=== PATIENT | male | born 1955 | race Hispanic/Latino ===

== ENCOUNTER → 2021-06-02 | Outpatient (CLI) | payer OTHER ==
[~2021-06-02] MED LIST: REGADENOSON 0.4 MG/5 ML PF SYG IVP SCH
== END | disposition home or self-care (01) ==
LOC: OIH 08:43
PROVIDERS: ATTEND Internal Medicine Cardiovascular Disease
DX: R07.9 Chest pain, unspecified (principal)
CPT/HCPCS: 78452; 93017; 96374; A9500 ×2; J2785

== ENCOUNTER → 2022-09-27 | Outpatient (CLI) | payer OTHER ==
[2022-09-27 12:33] LABS: BASOPHILS % (AUTO) 0.6 % (0.0-5.0); EOSINOPHILS % (AUTO) 4.3 % (0.0-8.0); HEMATOCRIT 38.9 % (42-54); LYMPHOCYTES % (AUTO) 24.8 % (21.0-51.0); MEAN CORPUSCULAR HEMOGLOBIN 29.1 pg (27.0-33.0); MEAN CORPUSCULAR HGB CONC 33.7 g/dL (32.0-36.0); MEAN CORPUSCULAR VOLUME 86.4 fL (79-99); MONOCYTES % (AUTO) 11.2 % (3.0-13.0); NEUTROPHILS % (AUTO) 58.8 % (40.0-77.0); PLATELET COUNT (AUTO) 196 K/uL (130-400); RED CELL DISTRIBUTION WIDTH 13.2 % (11.0-15.5); WHITE BLOOD COUNT (AUTO) 6.3 K/uL (4.8-10.8)
[2022-09-27 13:06] LABS: ALBUMIN 3.7 g/dL (3.5-5.0); CREATININE 1.2 mg/dL (0.5-1.5); MAGNESIUM 1.9 mg/dL (1.80-2.40); POTASSIUM 4.4 mmol/L (3.5-5.1); T4 (THYROXINE) 7.6 ug/dL (4.7-13.3); THYROID STIMULATING HORMONE 1.22 uIU/mL (0.36-3.74); TOTAL PROTEIN, SERUM 7.1 g/dL (6.0-8.3)
== END | disposition home or self-care (01) ==
LOC: LAB 11:06
PROVIDERS: ATTEND Physician Assistant
DX: R07.9 Chest pain, unspecified (principal); I25.10 Atherosclerotic heart disease of native coronary artery without angina pectoris; E11.9 Type 2 diabetes mellitus without complications; E78.5 Hyperlipidemia, unspecified; K21.9 Gastro-esophageal reflux disease without esophagitis; Z79.84 Long term (current) use of oral hypoglycemic drugs; Z79.899 Other long term (current) drug therapy; Z95.5 Presence of coronary angioplasty implant and graft
CPT/HCPCS: 36415; 80053; 83735; 84436; 84443; 85025

== ENCOUNTER → 2022-10-25 | Outpatient (CLI) | payer OTHER | END | disposition home or self-care (01) | LOC: SHCH 07:42 | PROVIDERS: ATTEND Internal Medicine Cardiovascular Disease | DX: I77.810 Thoracic aortic ectasia (principal); R07.9 Chest pain, unspecified | CPT/HCPCS: 93306 ==

== ENCOUNTER → 2022-11-01 | Outpatient (CLI) | payer OTHER ==
[~2022-11-01] MED LIST changes: +REGADENOSON 0.4 MG/5 ML PF SYG IVP ONE; -REGADENOSON 0.4 MG/5 ML PF SYG IVP SCH
== END | disposition home or self-care (01) ==
LOC: SHCH 09:08
PROVIDERS: ATTEND Internal Medicine Cardiovascular Disease
DX: R07.9 Chest pain, unspecified (principal)
CPT/HCPCS: 78452; 96374; 93017; J2785; A9500 ×2

== ENCOUNTER → 2024-06-29 | Outpatient (CLI) | payer OTHER ==
[~2024-06-29] MED LIST changes: +ASPI-449 PO; +ATOR10 PO; +CETI10CA5 PO; +CHOL500051 PO; +CLOP75TA32 PO; +ESCI-8 PO; +ESOM40CA66 PO; +GLUC-193 PO; +HYDR-4060 PO; +HYDR200T75 PO; +MECL-226 PO; +METF-444 PO; +METO-408 PO; +MULT-1296 PO; +NITR0.4T SL; +PRED5TAB PO; -REGADENOSON 0.4 MG/5 ML PF SYG IVP ONE; +TAMS-1 PO; +TIZA4CAP8 PO
[2024-06-29] MEDS: REGADENOSON 0.4 MG/5 ML PF SYG IVP ONE (15:52)
--- NOTE | 2024-07-05 10:06 | HMCSR ---
APPROVED REPORT Height: 5 ft 8in Weight: 166 lbs TEST INDICATIONS Chest Pain The imaging protocol used to acquire images was Rest Tc-99m/stress Tc-99m 1 day Consent: The procedure was explained and understood by the patient. Informerd consent was witnessed Eric Yates RN First, low dose rest was performed then high dose stress. RESTING DATA: The resting ekg shows: NSR Rest SPECT myocardial perfusion imaging was performed in supine position 120 minutes following the in travenous injection of 12.5 mCi of Tc-99 Sestamibi. Time of rest injection: 08:55: Date: 06/29/2024 Time of rest imagin:55: Date: 06/29/2024 PHARMACOLOGIC STRESS: Pharmacologic stress test was performed by injecting regadenoson 0.4 mg IV push followed by the intra venous injection of 30.0 mCi of Tc-99 Sestamibi. Time of stress injection: 11:34: Date: 06/29/2024 Time of stress imagin:22: Date: 06/29/2024 Heart Rate at time of stress injection: 78 bpm. Gated Stress SPECT was performed 108 minutes after stress injection. The images were gated to evaluate regional wall motion and calculate left ventricular ejection fracti on. STRESS DETAILS Reason for Termination: Infusion complete Stress Symptoms: COUGHING Max HR Achieved: 93 bpm % of APMHR Achieved: 61 Max Blood Pressure: 116/76 mmHg Stress ECG: NSR Study quality was good. Lung uptake was Normal. Artifact: increased GI uptake LEFT VENTRICLE Size: The left ventricular size is normal. Systolic Function:The left ventricular systolic function is normal. Wall Motion: Cannot assess regional wall motion abnormalities. The left ventricular ejection fraction was calculated to be 65%.TID = . LV PERFUSION The rest and stress images show normal perfusion. IMPRESSION Normal exercise pharmacologic nuclear stress test. Global LV Function: Normal Stress ECG Summary: Normal LV Perfusion Summary: Normal Conclusion Normal exercise pharmacologic nuclear stress test. Global LV Function: Normal Stress ECG Summary: Normal LV Perfusion Summary: Normal
== END | disposition home or self-care (01) ==
LOC: SHCH 08:33
PROVIDERS: ATTEND Internal Medicine Cardiovascular Disease
DX: R07.9 Chest pain, unspecified (principal); R05.9 Cough, unspecified
CPT/HCPCS: 78452; 93017; J2785; A9500 ×2

== ENCOUNTER → 2024-12-28 | Outpatient (CLI) | payer OTHER ==
[~2024-12-28] MED LIST changes: -TAMS-1 PO; +TAMS-55 PO
--- NOTE | 2024-12-29 07:39 | HMCIMG ---
EXAMINATION: CT Chest Without IV Contrast CLINICAL HISTORY: Patient presents with known aneurysm of the ascending aorta without rupture. TECHNIQUE: Axial computed tomography images of the chest without intravenous contrast. 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 A 3.0 cm subsolid nodule in the right upper lobe (series 3, image 26). A 0.3 cm nodule in the right lower lobe (series 3, image 35). A 0.4 cm ground-glass nodule in the left lower lobe (series 3, image 44). A 0.3 cm ground-glass nodule in the right lower lobe (series 3, image 47). Stable subsegmental atelectasis in the left upper lobe with adjacent ground-glass opacities and fibrotic bands. PLEURAL SPACES: No pleural effusion or pneumothorax. HEART: No cardiomegaly or significant pericardial effusion. VASCULATURE: There is aneurysmal dilatation of the ascending thoracic aorta, measuring 4.7 cm. Focal atheromatous wall calcifications in the thoracic aorta and coronary arteries. LYMPH NODES: No mediastinal or hilar lymphadenopathy. UPPER ABDOMEN: Hepatic calcified granuloma. Status post cholecystectomy. Left extrarenal pelvis. BONES: No acute osseous abnormality. Multilevel moderate spondylosis. OTHERS: Spinal cord stimulator in situ.IMPRESSION: Aneurysmal dilatation of the ascending thoracic aorta measuring 4.7 cm; recommend CT angiography of the chest with contrast for further evaluation and follow-up. Atherosclerosis and coronary artery disease. Multiple bilateral pulmonary nodules. LUNG RADS 2: Recommended optional follow-up at 12 months. Centriacinar emphysema with upper lobe predominance. Stable subsegmental atelectasis with associated fibrotic bands in the left upper lobe. No pulmonary infiltrates or pleural effusions. /[place]
== END | disposition home or self-care (01) ==
LOC: RAH 12:44
PROVIDERS: ATTEND Internal Medicine Cardiovascular Disease
DX: I71.21 Aneurysm of the ascending aorta, without rupture (principal); I70.0 Atherosclerosis of aorta; I25.10 Atherosclerotic heart disease of native coronary artery without angina pectoris; K75.3 Granulomatous hepatitis, not elsewhere classified; J43.2 Centrilobular emphysema; J98.11 Atelectasis; J84.10 Pulmonary fibrosis, unspecified; R91.8 Other nonspecific abnormal finding of lung field; Z90.49 Acquired absence of other specified parts of digestive tract
CPT/HCPCS: 71250